=== PATIENT | female | born 1985 | race Caucasian/White ===

== ENCOUNTER 2018-02-15 21:22 | Emergency (ER) | payer MEDICAID ==
[2018-02-15 21:43] VITALS: BP 122/80
[2018-02-15] MEDS ORDERED: ONDANSETRON 4 MG TAB.RAPDIS PO ONE (23:09)
--- NOTE | 2018-02-15 23:11 | ER Document Report ---
ED Medical Screen (RME) - General Chief Complaint: Chest Pain Stated Complaint: CHEST PAIN,NAUSEA,VOMITING,BACK PAIN Time Seen by Provider: 02/15/18 23:09 Mode of Arrival: Ambulatory Information source: Patient Notes: 32-year-old female presented ED for complaint of cough cold congestion diagnosed with a sinus infection about a week ago. She states she was started on Augmentin and finished that 2 days ago. She states she started with chest pain about 4 days ago. She states she started nausea and vomiting 2 days ago. States that she is not able to keep anything down for the last 2 days. She states that she continues to vomit she is getting weaker and weaker. Patient is alert and oriented respirations regular and unlabored O2 sats are 98 presents with a pulse of 84 when I examined her and 11:10 PM. I have greeted and performed a rapid initial assessment of this patient. A comprehensive ED assessment and evaluation of the patient, analysis of test results and completion of medical decision making process will be conducted by an additional ED providers. TRAVEL OUTSIDE OF THE [place] IN LAST 30 DAYS: No Physical Exam - Vital signs Vitals: Temp Pulse Resp BP Pulse Ox 98.1 F 91 28 H 122/80 98 02/15/18 21:23 02/15/18 21:23 02/15/18 21:23 02/15/18 21:23 02/15/18 21:23 Course - Vital Signs Vital signs: Temp Pulse Resp BP Pulse Ox 98.1 F 91 28 H 122/80 98 02/15/18 21:23 02/15/18 21:23 02/15/18 21:23 02/15/18 21:23 02/15/18 21:23
--- NOTE | 2018-02-15 23:30 | EKG REPORT ---
SEVERITY:- NORMAL ECG - SINUS RHYTHM : Confirmed by: Vanna Baxter MD 15-Feb-2018 23:30:12
== END 2018-02-16 | disposition left against medical advice (07) ==
LOC: ER 21:22
DX: R07.9 Chest pain, unspecified (principal); R11.2 Nausea with vomiting, unspecified; R05 Cough; R53.1 Weakness; Z53.20 Procedure and treatment not carried out because of patient's decision for unspecified reasons
CPT/HCPCS: 93005; 93010; 99281

== ENCOUNTER 2020-04-23 01:52 | Emergency (ER) | payer MEDICAID ==
[2020-04-23 02:50] VITALS: BP 106/72
[2020-04-23 02:58] LABS: APPEARANCE,URINE CLEAR; BILIRUBIN,URINE NEGATIVE (NEGATIVE); COLOR,URINE STRAW; GLUCOSE, URINE NEGATIVE (NEGATIVE); KETONES,URINE NEGATIVE (NEGATIVE); LEUKOCYTE ESTERASE,URINE NEGATIVE (NEGATIVE); NITRITE,URINE NEGATIVE (NEGATIVE); PROTEIN,URINE NEGATIVE (NEGATIVE); URINE SPECIFIC GRAVITY 1.008; UROBILINOGEN,URINE NEGATIVE mg/dL (<2.0)
[2020-04-23 03:29] LABS: ABSOLUTE LYMPHOCYTES (AUTO) 2.7 10^3/uL (0.5-4.7); ABSOLUTE MONOCYTES (AUTO) 0.3 10^3/uL (0.1-1.4); ABSOLUTE NEUT (AUTO) 2.7 10^3/uL (1.7-8.2); BASOPHILS % (AUTO) 0.7 % (0-2); EOSINOPHILS % (AUTO) 0.8 % (0-6); HEMATOCRIT 38.4 % (36.0-47.0); HEMOGLOBIN 12.7 g/dL (12.0-15.5); LYMPHOCYTES % (AUTO) 46.2 % (13-45); MEAN CORPUSCULAR HEMOGLOBIN 28.5 pg (27.0-33.4); MEAN CORPUSCULAR VOLUME 86 fl (80-97); MONOCYTES % (AUTO) 5.8 % (3-13); PLATELET COUNT 218 10^3/uL (150-450); RED BLOOD COUNT 4.45 10^6/uL (3.72-5.28); RED CELL DISTRIBUTION WIDTH 15.2 % (11.5-14.0); SEGMENTED NEUTROPHILS % (AUTO) 46.5 % (42-78); TOTAL CELLS COUNTED % (AUTO) 100 %; WHITE BLOOD COUNT 5.8 10^3/uL (4.0-10.5)
[2020-04-23 03:41] LABS: ALKALINE PHOSPHATASE 52 U/L (38-126); ASPARTATE AMINO TRANSFERASE 18 U/L (14-36); BILIRUBIN,TOTAL 0.7 mg/dL (0.2-1.3); BLOOD UREA NITROGEN 15 mg/dL (7-20); CALCIUM 9.4 mg/dL (8.4-10.2); GLUCOSE 100 mg/dL (75-110); POTASSIUM 4.1 mmol/L (3.6-5.0); TOTAL PROTEIN 6.7 g/dL (6.3-8.2)
[2020-04-23 03:46] LABS: ANION GAP 6 (5-19); CARBON DIOXIDE 27 mmol/L (22-30); CHLORIDE 109 mmol/L (98-107)
== END 2020-04-23 04:20 | disposition left against medical advice (07) ==
LOC: ER 01:52
DX: Z53.21 Procedure and treatment not carried out due to patient leaving prior to being seen by health care provider (principal)
CPT/HCPCS: 36415; 80053; 81001; 83690; 84703; 85025